=== PATIENT | male | born 1955 | race Caucasian/White ===

== ENCOUNTER 2022-02-22 05:23 | Inpatient (IN) ==
[2022-02-22 06:19] LABS: Basophils % 0.2 % (0.0-0.8); Hemoglobin 15.3 GM/DL (14.0-18.0); Immature Granulocytes % 0.7 %; Immature Granulocytes Absolute 0.12 #; Lymphocytes # 0.8 10*3/uL (1.4-4.0); Lymphocytes % 4.7 % (21.2-54.2); Mean Corpuscular HGB Conc 36.4 GM/DL (32-36); Mean Corpuscular Volume 92.9 FL (87-102); Mean Platelet Volume 10.5 FL (9.6-12.0); Monocytes # 1.1 10*3/uL (0.11-0.8); Monocytes % 6.5 % (1.7-12.7); Neutrophils % 87.9 % (38.7-73.9); Platelet Count 229 T/CUMM (130-400); Red Blood Count 4.52 MC/CUMM (3.8-5.5); Red Cell Distribution Width 12.3 % (9.3-17.3); White Blood Count 17.3 T/CUMM (4-12)
[2022-02-22 06:54] LABS: Albumin 4.4 G/DL (3.4-5.0); Calcium 9.6 MG/DL (8.5-10.1); Osmolality,Calculated 256.4 MOS/KG (273-304); Total Protein 7.4 G/DL (6.4-8.2)
[2022-02-22] MEDS ORDERED: SODIUM CHLORIDE 0.9% 1,000 ML IV STA (07:08)
[2022-02-22] MEDS ORDERED: ACETAMINOPHEN 325 MG TABLET PO PRN (07:57)
[2022-02-22] MEDS ORDERED: ONDANSETRON 4 MG/2 ML VIAL IV PRN (07:57)
[2022-02-22] MEDS ORDERED: hydrALAZINE 20 MG/1 ML VIAL IV PRN (07:57)
[2022-02-22] MEDS ORDERED: LORazepam 2 MG/1 ML VIAL IV PRN (08:05)
[2022-02-22] MEDS ORDERED: GLUCAGON 1 MG VIAL IM PRN (08:05)
[2022-02-22] MEDS ORDERED: THIAMINE 200 MG/2 ML VIAL IV ONE (08:08)
[2022-02-22] MEDS ORDERED: DEXTROSE 10% 250 ML BAG IV PRN (08:15)
[2022-02-22] MEDS: TAMSULOSIN 0.4 MG CAPSULE PO SCH (08:49)
[2022-02-22] MEDS: FOLIC ACID 1 MG TABLET PO SCH (08:50)
[2022-02-22] MEDS: PANTOPRAZOLE 40 MG TABLET PO SCH (08:51)
[2022-02-22] MEDS: amLODIPine 5 MG TABLET PO SCH ×2 (08:51→11:09)
[2022-02-22] MEDS: ENOXAPARIN 40 MG/0.4 ML SYRINGE SUBCUT SCH (08:51)
[2022-02-22] MEDS: SODIUM CHLORIDE 0.45% 1,000 ML IV SCH ×2 (08:52→16:36)
[2022-02-22] MEDS ORDERED: KETOROLAC 30 MG/1 ML VIAL IV ONE (10:53)
[2022-02-22] MEDS ORDERED: DICLOFENAC 1% GEL 100 GM TUBE TOP PRN (10:54)
[2022-02-22] MEDS: INSULIN LISPRO 100 UNIT/ML SUBCUT SCH ×3 (12:43→22:39)
[2022-02-22 13:35] LABS: Bilirubin,Urine Negative (Negative); Blood, Urine Negative (Negative); Glucose,Urine (UA) Negative (Negative); Ketones,Urine Negative (Negative); Nitrite,Urine Negative (Negative); Protein,Urine 30 mg/dL (Negative); Urine Appearance Clear (Clear); Urine Color Yellow (Yellow); Urine Specific Gravity 1.015 (1.001-1.035)
[2022-02-22 13:39] LABS: Hyaline Casts,Urine 20 /LPF (0-3); Mucus,Urine Occasional /LPF (Occasional); RBC,Urine 6 /HPF (0-4); Squamous Epithelial Cell,Urine Occasional /HPF (0-10)
[2022-02-22] MEDS ORDERED: HYDROmorphone 1 MG/1 ML SYRINGE IV PRN (20:55)
[2022-02-23] MEDS: SODIUM CHLORIDE 0.45% 1,000 ML IV SCH ×3 (00:57→16:45)
[2022-02-23 04:29] LABS: Basophils % 0.4 % (0.0-0.8); Eosinophils # 0.1 10*3/uL (0.0-0.87); Eosinophils % 0.9 % (0.00-10.9); Hematocrit 35.2 VOL% (42.0-52.0); Hemoglobin 12.5 GM/DL (14.0-18.0); Immature Granulocytes % 0.6 %; Immature Granulocytes Absolute 0.04 #; Lymphocytes # 1.5 10*3/uL (1.4-4.0); Lymphocytes % 22.4 % (21.2-54.2); Mean Corpuscular HGB Conc 35.5 GM/DL (32-36); Mean Corpuscular Volume 94.6 FL (87-102); Mean Platelet Volume 10.3 FL (9.6-12.0); Monocytes # 0.8 10*3/uL (0.11-0.8); Monocytes % 11.8 % (1.7-12.7); Neutrophils % 63.9 % (38.7-73.9); Platelet Count 180 T/CUMM (130-400); Red Blood Count 3.72 MC/CUMM (3.8-5.5); Red Cell Distribution Width 12.4 % (9.3-17.3); White Blood Count 6.8 T/CUMM (4-12)
[2022-02-23 04:52] LABS: Albumin 3.6 G/DL (3.4-5.0); Bilirubin,Total 1.3 MG/DL (0.20-1.00); Calcium 8.5 MG/DL (8.5-10.1); Osmolality,Calculated 257.9 MOS/KG (273-304); Potassium 3.5 MMOL/L (3.5-5.1); Total Protein 6.6 G/DL (6.4-8.2)
[2022-02-23 04:55] LABS: Folate > 24.00 NG/ML (5.38-24.0); Vitamin B12 440 PG/ML (211-911)
[2022-02-23] MEDS: INSULIN LISPRO 100 UNIT/ML SUBCUT SCH ×4 (08:09→21:11)
[2022-02-23] MEDS: THIAMINE 100 MG TABLET PO SCH (09:44)
[2022-02-23] MEDS: amLODIPine 5 MG TABLET PO SCH (09:44)
[2022-02-23] MEDS: TAMSULOSIN 0.4 MG CAPSULE PO SCH (09:44)
[2022-02-23] MEDS: FOLIC ACID 1 MG TABLET PO SCH (09:44)
[2022-02-23] MEDS: PANTOPRAZOLE 40 MG TABLET PO SCH (09:44)
[2022-02-23] MEDS: ENOXAPARIN 40 MG/0.4 ML SYRINGE SUBCUT SCH (09:44)
[2022-02-24] MEDS: SODIUM CHLORIDE 0.45% 1,000 ML IV SCH ×3 (02:44→16:31)
[2022-02-24 06:10] LABS: Basophils % 0.6 % (0.0-0.8); Eosinophils # 0.1 10*3/uL (0.0-0.87); Eosinophils % 0.9 % (0.00-10.9); Hemoglobin 12.5 GM/DL (14.0-18.0); Immature Granulocytes % 0.6 %; Immature Granulocytes Absolute 0.04 #; Lymphocytes # 1.4 10*3/uL (1.4-4.0); Lymphocytes % 19.9 % (21.2-54.2); Mean Corpuscular HGB Conc 35.7 GM/DL (32-36); Mean Corpuscular Volume 94.6 FL (87-102); Monocytes # 0.9 10*3/uL (0.11-0.8); Monocytes % 13.6 % (1.7-12.7); Neutrophils % 64.4 % (38.7-73.9); Platelet Count 204 T/CUMM (130-400); Red Cell Distribution Width 12.4 % (9.3-17.3); White Blood Count 6.9 T/CUMM (4-12)
[2022-02-24 06:30] LABS: Calcium 8.6 MG/DL (8.5-10.1); Osmolality,Calculated 263.4 MOS/KG (273-304); Potassium 3.6 MMOL/L (3.5-5.1)
[2022-02-24] MEDS: INSULIN LISPRO 100 UNIT/ML SUBCUT SCH ×3 (08:29→16:30)
[2022-02-24] MEDS: amLODIPine 5 MG TABLET PO SCH (08:34)
[2022-02-24] MEDS: TAMSULOSIN 0.4 MG CAPSULE PO SCH (08:34)
[2022-02-24] MEDS: THIAMINE 100 MG TABLET PO SCH (08:34)
[2022-02-24] MEDS: FOLIC ACID 1 MG TABLET PO SCH (08:34)
[2022-02-24] MEDS: PANTOPRAZOLE 40 MG TABLET PO SCH (08:34)
[2022-02-24] MEDS: ENOXAPARIN 40 MG/0.4 ML SYRINGE SUBCUT SCH (08:35)
[2022-02-24] MEDS ORDERED: MAGNESIUM SULF RIDER 2 GM in PREMIX 1 EACH IV ONE (09:26)
[2022-02-24 12:11] VITALS: BP 152/50
== END 2022-02-24 16:54 | disposition home health service (06) | DRG 184 ==
LOC: N.ED 05:23 → SUATTDRO 07:57 → N.TELES 07:57
PROVIDERS: ADMIT Family Medicine; ATTEND Internal Medicine